=== PATIENT | female | born 1990 | race Caucasian/White ===

== ENCOUNTER 2017-07-15 15:51 | Emergency (ER) | payer SELFPAY ==
[~2017-07-15] VITALS: Ht 160 cm; Wt 100.0 kg
[~2017-07-15 15:51] MED LIST: BACTRIM DS1 TAB OR; CONCEPT OB PO; PHENERGAN25 MG/TAB PO; PRENATABS OR; TUBERSOL5 MG/0.1 M ID
[2017-07-15] MEDS ORDERED: PENICILLN VK500 MG PO (16:01)
[2017-07-15] MEDS ORDERED: MOTRIN800 MG PO (16:01)
[2017-07-15 16:35] VITALS: BP 151/89
== END 2017-07-15 16:35 | disposition home or self-care (01) | DRG 159 ==
LOC: ED 15:51
DX: K08.89 Other specified disorders of teeth and supporting structures (principal)

== ENCOUNTER 2019-06-15 11:48 | Emergency (ER) | payer OTHER ==
[~2019-06-15] VITALS: Ht 172.7 cm; Wt 110.9 kg
[~2019-06-15 11:48] MED LIST changes: +MOTRIN800 MG PO; +PENICILLN VK500 MG PO
[2019-06-15 16:39] VITALS: BP 133/87
== END 2019-06-15 13:39 | disposition home or self-care (01) | DRG 552 ==
LOC: ED 11:48
DX: M54.2 Cervicalgia (principal); M54.6 Pain in thoracic spine; V43.51XA Car driver injured in collision with sport utility vehicle in traffic accident, initial encounter

== ENCOUNTER 2020-09-01 10:44 | Emergency (ER) | payer SELFPAY ==
[~2020-09-01] VITALS: Ht 172.7 cm; Wt 95.9 kg
[2020-09-01 12:40] VITALS: BP 122/68
== END 2020-09-01 12:55 | disposition home or self-care (01) | DRG 880 ==
LOC: ED 10:44
DX: F41.9 Anxiety disorder, unspecified (principal); Z79.899 Other long term (current) drug therapy
CPT/HCPCS: J2060

== ENCOUNTER 2021-02-02 14:05 | Emergency (ER) | payer OTHER ==
[2021-02-02 16:31] VITALS: BP 123/84
== END 2021-02-02 16:47 | disposition home or self-care (01) ==
LOC: ED 14:05
DX: U07.1 COVID-19 (principal); F41.9 Anxiety disorder, unspecified

== ENCOUNTER 2022-04-28 15:59 | Emergency (ER) | payer BC, OTHER ==
[~2022-04-28] VITALS: Ht 172.7 cm; Wt 104.3 kg
[2022-04-28 17:22] VITALS: BP 132/79
[2022-04-28 17:30] VITALS: BP 109/65
[2022-04-28 18:57] VITALS: BP 109/65
== END 2022-04-28 19:01 | disposition home or self-care (01) | DRG 153 ==
LOC: ED 15:59
DX: J02.9 Acute pharyngitis, unspecified (principal); F41.9 Anxiety disorder, unspecified